=== PATIENT | female | born 1990 | race African-American/Black ===

== ENCOUNTER 2017-04-24 17:18 | Emergency (ER) | payer MEDICAID ==
[~2017-04-24] VITALS: Ht 157.5 cm; Wt 57.0 kg
[2017-04-24 17:55] VITALS: BP 112/65
== END 2017-04-24 23:27 | disposition left against medical advice (07) ==
LOC: ER 17:19
DX: Z53.21 Procedure and treatment not carried out due to patient leaving prior to being seen by health care provider (principal)
CPT/HCPCS: 93005